=== PATIENT | female | born 1995 | race Caucasian/White ===

== ENCOUNTER 2022-02-04 09:30 | Inpatient (IN) ==
[2022-02-04 15:24] LABS: Basophils % 0.4 % (0.0-0.8); Eosinophils # 0.2 10*3/uL (0.0-0.87); Hematocrit 39.5 VOL% (35.7-47.0); Hemoglobin 12.4 GM/DL (12.0-16.0); Immature Granulocytes % 1.3 %; Lymphocytes # 1.5 10*3/uL (1.4-4.0); Lymphocytes % 19.4 % (21.3-54.2); Mean Corpuscular HGB Conc 31.4 GM/DL (32-36); Mean Corpuscular Volume 80.6 FL (87-102); Mean Platelet Volume 12.7 FL (9.6-12.0); Monocytes # 0.5 10*3/uL (0.11-0.8); Monocytes % 6.8 % (1.7-12.7); NRBC # 0.02 10*3/uL; Neutrophils % 70.1 % (38.7-73.9); Platelet Count 124 T/CUMM (130-400); Red Cell Distribution Width 14.5 % (9.3-17.3); White Blood Count 7.6 T/CUMM (4-12)
[2022-02-04] MEDS ORDERED: OXYTOCIN/LR 20 UNIT/1,000 ML BAG IV ONE (15:36)
[2022-02-04] MEDS ORDERED: METHYLERGONOVINE 0.2 MG/1 ML AMP IM PRN (15:36)
[2022-02-04] MEDS ORDERED: miSOPROStoL 200 MCG TABLET RECTAL PRN (15:36)
[2022-02-04] MEDS ORDERED: TRANEXAMIC ACID 1,000 MG in SODIUM CHLORIDE 0.9% 100 ML IV PRN (15:36)
[2022-02-04] MEDS ORDERED: ONDANSETRON 4 MG/2 ML VIAL IV PRN (15:36)
[2022-02-04] MEDS ORDERED: CARBOPROST TROMETHAMINE 250 MCG/ML AMP IM PRN (15:36)
[2022-02-04] MEDS ORDERED: ePHEDrine 50 MG/ML VIAL IV PRN (15:39)
[2022-02-04] MEDS ORDERED: diphenhydrAMINE 50 MG/1 ML VIAL IV PRN ×2 (15:39)
[2022-02-04] MEDS ORDERED: hydrOXYzine HCL 25 MG/1 ML VIAL IM PRN (15:39)
[2022-02-04] MEDS ORDERED: PROMETHAZINE 25 MG/1 ML VIAL IM ONE (15:39)
[2022-02-04] MEDS ORDERED: NALOXONE 0.4 MG/ML VIAL IV PRN (15:39)
[2022-02-04] MEDS ORDERED: CITRIC ACID/SODIUM CITRATE 30 ML UDCUP PO ONE (15:39)
[2022-02-04] MEDS ORDERED: FAMOTIDINE 20 MG/2 ML VIAL IV ONE (15:39)
[2022-02-04 15:43] LABS: Albumin 2.8 G/DL (3.4-5.0); Bilirubin,Total 0.4 MG/DL (0.20-1.00); Calcium 8.8 MG/DL (8.5-10.1); Osmolality,Calculated 269.7 MOS/KG (273-304); Potassium 4.1 MMOL/L (3.5-5.1); Total Protein 7.1 G/DL (6.4-8.2)
[2022-02-04] MEDS: LACTATED RINGERS 1,000 ML IV SCH ×2 (15:51→19:52)
[2022-02-04] MEDS ORDERED: fentaNYL 2 MCG/ROPIV 0.2% EPID 100 ML EPIDURAL SCH (16:00)
[2022-02-04 17:44] LABS: Bilirubin,Urine Negative (Negative); Blood, Urine Negative (Negative); Glucose,Urine (UA) Negative (Negative); Ketones,Urine 40 mg/dL (Negative); Nitrite,Urine Negative (Negative); Protein,Urine Negative (Negative); Urine Appearance Clear (Clear); Urine Color Yellow (Yellow); Urine Specific Gravity 1.015 (1.001-1.035); Urine Urobilinogen 0.2 eU/dL (<2.0)
[2022-02-04 17:49] LABS: Mucus,Urine Occasional /LPF (Occasional); RBC,Urine <1 /HPF (0-4)
[2022-02-04 22:05] LABS: Cord Arterial Blood HCO3 19.2 MMOL/L
[2022-02-04 22:09] LABS: Cord Venous Blood HCO3 21.3 MMOL/L; Cord Venous Blood PCO2 40.5 MMHG; Cord Venous Blood PO2 31.9
[2022-02-05] MEDS: IBUPROFEN 800 MG TABLET PO PRN ×3 (04:59→22:18)
[2022-02-05] MEDS: DOCUSATE SODIUM 100 MG CAPSULE PO PRN ×2 (09:18→22:18)
[2022-02-05 09:44] LABS: Basophils % 0.3 % (0.0-0.8); Eosinophils # 0.2 10*3/uL (0.0-0.87); Eosinophils % 1.4 % (0.00-10.9); Hematocrit 32.2 VOL% (35.7-47.0); Immature Granulocytes % 1.1 %; Immature Granulocytes Absolute 0.12 #; Lymphocytes # 1.9 10*3/uL (1.4-4.0); Lymphocytes % 17.2 % (21.3-54.2); Mean Corpuscular HGB Conc 30.7 GM/DL (32-36); Mean Corpuscular Volume 82.1 FL (87-102); Mean Platelet Volume 12.6 FL (9.6-12.0); Monocytes # 0.8 10*3/uL (0.11-0.8); Monocytes % 6.7 % (1.7-12.7); NRBC # 0.02 10*3/uL; Neutrophils % 73.3 % (38.7-73.9); Platelet Count 145 T/CUMM (130-400); Red Blood Count 3.92 MC/CUMM (3.8-5.5); Red Cell Distribution Width 14.5 % (9.3-17.3)
[2022-02-05 09:45] LABS: Hemoglobin 9.9 GM/DL (12.0-16.0); White Blood Count 11.2 T/CUMM (4-12)
[2022-02-05] MEDS ORDERED: BENZOCAINE 20%/MENTHOL 0.5% SPRAY 56 GM CAN TOP PRN (09:49)
[2022-02-06] MEDS ORDERED: MAGNESIUM HYDROXIDE SUSP 30 ML UDCUP PO ONE (02:47)
[2022-02-06] MEDS ORDERED: MEASLES/MUMPS/RUBELLA VACCINE 0.5 ML VIAL SUBCUT ONE (07:37)
[2022-02-06] MEDS: DOCUSATE SODIUM 100 MG CAPSULE PO PRN (08:19)
[2022-02-06] MEDS: IBUPROFEN 800 MG TABLET PO PRN (08:21)
[2022-02-06 13:24] VITALS: BP 106/80
== END 2022-02-06 13:20 | disposition home or self-care (01) | DRG 807 ==
LOC: N.LD 09:30 → N.OB 02-05 00:57
PROVIDERS: ADMIT Student in an Organized Health Care Education/Training Program; ATTEND Student in an Organized Health Care Education/Training Program